=== PATIENT | female | born 2000 | race Two or more races ===

== ENCOUNTER 2018-03-28 23:12 | Emergency (ER) | payer OTHER ==
[2018-03-28 23:22] VITALS: BP 123/102
--- NOTE | 2018-03-28 23:29 | EDPHY ---
H & P Stated Complaint: wisdom tooth pain after extraction Source: Patient Exam Limitations: No limitations - Personal History LMP (Females 10-55): 8-14 Days Ago Current Tetanus Diphtheria and Acellular Pertussis (TDAP): Yes - Medical/Surgical History Hx Asthma: No Hx Chronic Respiratory Disease: No Hx Diabetes: No Hx Cardiac Disease: No Hx Renal Disease: No Hx Cirrhosis: No Hx Alcoholism: No Hx HIV/AIDS: No Hx Splenectomy or Spleen Trauma: No - Social History Smoking Status: Never smoked Time Seen by Provider: 03/28/18 23:23 HPI/ROS: HPI: This is a 17-year-old female who presents with Chief Complaint: Tooth pain Location: Tooth Quality: Pain Duration: 4-5 days Signs and Symptoms: no fever, no nausea, no vomiting, no diarrhea, no urinary symptoms, no chest pain, no shortness of breath, no wheezing, no cough, no sore throat, no neck stiffness, no joint pain, no swollen glands, no ear pain, no rash, no drooling Timing: Acute Severity: [id number] Context: Patient is a student at [employer], originally from [place], had all of her 4 wisdom teeth removed in [place] approximately 5 days ago. Patient presents with complaints of tooth pain that is not relieved by ibuprofen. She reports that it hurts to open her mouth and she has not been able to eat much food for the last several days. She has been trying to drink liquids. Patient reports that her left jaw is hurting. Modifying Factors: Ibuprofen with no relief Comment: ROS: A comprehensive 10 system review of systems is otherwise negative aside from elements mentioned in the history of present illness. MEDICAL/SURGICAL/SOCIAL HISTORY: Medical history: Generally healthy. Does not take any regular medications. Surgical history: Denies Social history: Nonsmoker. Family history noncontributory. CONSTITUTIONAL: Nontoxic-appearing, polite and cooperative teenage white female , awake and alert, no obvious distress HEENT: Atraumatic and normocephalic, PERRL, EOMI. no globe entrapment, no raccoon eyes. no Castillo signs.Tympanic membranes clear. No tympanic membrane rupture. Nares patent; no septal hematoma. Oropharynx clear, no exudate and moist pink mucosa. No malocclusion. no dental trauma. No signs of dry socket. No gingival erythema or fluctuance. Airway patent. No lymphadenopathy. NECK: supple, no lymphadenopathy, No meningismus. Cardiovascular: Normal S1/S2, tachycardia, regular rhythm, without murmur rub or gallop. PULMONARY/CHEST: Symmetrical and nontender. no crepitus. Clear to auscultation bilaterally. Good air movement. No accessory muscle usage. ABDOMEN: Soft, nondistended, nontender. EXTREMITIES: 2/2 pulses, no deformities, no clubbing, no cyanosis or edema. NEUROLOGICAL: no focal neuro deficits. GCS 15. Speech clear. SKIN: Warm and dry, no erythema. no rash. Good capillary refill. (Nikkie Kirkland) Constitutional: Initial Vital Signs Temperature (C) 36.8 C 03/28/18 23:20 Heart Rate 104 H 03/28/18 23:20 Respiratory Rate 20 03/28/18 23:20 Blood Pressure 123/102 H 03/28/18 23:20 O2 Sat (%) 98 03/28/18 23:20 O2 Delivery Mode Room Air Allergies/Adverse Reactions: No Known Allergies Allergy (Unverified 03/28/18 23:19) Home Medications: Medication Instructions Recorded Amoxicillin Trihydrate [Amoxil] 500 mg PO TID 7 Days cap 03/28/18 Chateal-28 Tablet 03/28/18 Medical Decision Making ED Course/Re-evaluation: Vital signs reviewed and show mild tachycardia. Patient has no signs of facial cellulitis/dental abscess/malocclusion/dry socket Given prepack and prescription for amoxicillin and Percocet This patient was seen under the supervision of my secondary supervising physician. I evaluated care for this patient independently. (Nikkie Kirkland) PHYSICIAN DOCUMENTATION: The patient was evaluated and managed by the Physician [employer]. My co- signature indicates that I have reviewed this chart and I agree with the findings and plan of care as documented. I am the secondary supervising physician. (Lexie Malone) Differential Diagnosis: Differential diagnosis includes but is not limited toothache, cellulitis, abscess, dry socket. (Nikkie Kirkland) - Data Points Medications Given: Discontinued Medications Amoxicillin (Amoxil Chewable 250 Mg Prepack#4) 1 btl TAKEHOME EDNOW ONE PRN Reason: Protocol Stop: 03/28/18 23:31 Last Admin: 03/28/18 23:50 Dose: 1 btl Oxycodone/Acetaminophen (Percocet 5/325mg Prepack#4) 1 btl TAKEZEHRAE EDNOW ONE Stop: 03/28/18 23:31 Last Admin: 03/28/18 23:50 Dose: 1 btl Departure - Departure Disposition: Home, Routine, Self-Care Clinical Impression: Status post wisdom tooth extraction, Odontalgia Condition: Good Instructions: Oxycodone/Acetaminophen (By mouth), Amoxicillin (By mouth), Toothache (ED) Additional Instructions: Eat a soft diet. Consume a minimum of 8-10 glasses of water or electrolyte fluid replacement drinks that include Gatorade, Powerade, Pedialyte. Take Tylenol 650 mg every 4 hr and/or ibuprofen 600 mg every 8 hr as needed for pain. Take Percocet every 8 hr as needed for severe/breakthrough pain. Do not take Tylenol and Percocet at the same time. Taking antibiotic as directed until complete. Do not miss any doses. Referrals: [facility] [Outside] - 3-4 days, if not improved Prescriptions: Amoxicillin Trihydrate [Amoxil] 500 mg PO TID 7 Days cap
[2018-03-28] MEDS ORDERED: OXYCODONE/APAP 5/325MG PREPACK#4 BTL TAKEHOME ONE (23:30)
[2018-03-28] MEDS ORDERED: AMOXICILLIN 250 MG PREPACK#4 BTL TAKEHOME ONE (23:30)
== END 2018-03-28 23:55 | disposition home or self-care (01) ==
DX: K08.89 Other specified disorders of teeth and supporting structures (principal)

== ENCOUNTER 2018-04-01 02:31 | Emergency (ER) | payer OTHER ==
[2018-04-01 02:46] LABS: PLATELET COUNT 412 10^3/uL (150-400)
--- NOTE | 2018-04-01 03:38 | EDPHY ---
H & P Stated Complaint: AMS Source: Patient, EMS Exam Limitations: Intoxication - Medical/Surgical History Hx Asthma: No Hx Chronic Respiratory Disease: No Hx Diabetes: No Hx Cardiac Disease: No Hx Renal Disease: No Hx Cirrhosis: No Hx Alcoholism: No Hx HIV/AIDS: No Hx Splenectomy or Spleen Trauma: No - Social History Smoking Status: Never smoked Time Seen by Provider: 04/01/18 02:39 HPI/ROS: HPI The patient presents with overdose of alcohol, brought in by ambulance after her roommate called 911 because of altered mental status. The patient had a prescription of Percocet with her and paramedics gave her several doses of Narcan with no improvement in her mental status. The patient says she has had about 10 drinks of alcohol throughout the day today. This caused her to feel suicidal and she used a knife to cut her left neck very superficially. She says she has been feeling this way for the last 4 months and was drinking alcohol to help her to cope. She did not think the alcohol would causes suicide. 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 We saw her in the ER a few days ago after pain after her wisdom teeth were removed in [place]. She has been seen at the [facility] for symptoms of depression. She does not want to take medication for this. She cut her left wrist when she was 13 years old but does not have any other self-harm behaviors. REVIEW OF SYSTEMS 10 systems were reviewed and negative with the exception of the elements mentioned in the history of present illness. PMHx: Recent wisdom tooth removal Soc Hx: College student, from [place] originally PHYSICAL General Appearance: Tearful, clearly intoxicated Eyes: Pupils equal and round no pallor or injection ENT, Mouth: Mucous membranes moist Respiratory: There are no retractions, lungs are clear to auscultation Cardiovascular: Regular rate and rhythm Gastrointestinal: Abdomen is soft and non-tender, no masses, bowel sounds normal Neurological: A&O, moves all extremities Skin: Warm and dry, no rashes Musculoskeletal: Neck is supple, superficial abrasions to left neck Extremities: symmetrical, full range of motion Psychiatric: Patient is oriented X 3, there is no agitation (Riguzzi,Lexie) Constitutional: Initial Vital Signs Temperature (C) 36.3 C 04/01/18 02:31 Heart Rate 126 H 04/01/18 02:31 Respiratory Rate 16 04/01/18 02:31 Blood Pressure 131/110 H 04/01/18 02:31 O2 Sat (%) 98 04/01/18 02:31 O2 Delivery Mode Room Air Allergies/Adverse Reactions: No Known Allergies Allergy (Unverified 03/28/18 23:19) Home Medications: Medication Instructions Recorded Amoxicillin Trihydrate [Amoxil] 500 mg PO TID 7 Days cap 03/28/18 Chateal-28 Tablet 03/28/18 Acetamin-Codein 300-30 mg/12.5 04/01/18 Ibuprofen 04/01/18 Medical Decision Making ED Course/Re-evaluation: 7:00 a.m.-I assumed care of this patient at shift change. She presents with suicidal ideation on an M1 hold. She was intoxicated with alcohol last evening and presented with self cutting behavior. Mental health evaluation pending. This patient was seen by mental health and felt appropriate for outpatient treatment of depression. She denies suicidal ideation. I agree with this assessment. Safe and stable for discharge home with outpatient mental health follow-up. (Ashlyn Juarez) Differential Diagnosis: 17-year-old female, college student, presents with suicidal ideation, cutting her neck very superficially while intoxicated with alcohol. She is brought in by ambulance. Police have placed her on an M1 hold. Here, she is common cooperative. Plan for basic labs, observation, mental health evaluation. His differential diagnosis includes alcohol intoxication, polysubstance abuse, suicidal ideation related to underlying depression. The patient was monitored in the emergency department. Blood alcohol level was elevated. The case will be signed out at 7:[address] Juarez. The patient is awaiting mental health evaluation. (Lexie Malone) - Data Points Laboratory Results: Laboratory Results 04/01/18 02:30 04/01/18 02:30 Departure - Departure Disposition: Home, Routine, Self-Care Clinical Impression: Alcoholic intoxication Condition: Good Instructions: Alcohol Intoxication (ED), Suicide Prevention (ED) Referrals: [facility] [Clinic] - As per Instructions
[2018-04-01 13:16] VITALS: BP 110/78
--- NOTE | 2018-04-01 13:51 | ASMTTCLDSP ---
TLC Discharge Disposition Disposition: Answers: Discharge If Answers: Yes DISCHARGED: Patient/family given suicide hotline info & SAMHSA brochure? Disposition Notes: Notes: Py was discharged in care of roommate and friend. Pt will call and make an appt with her therapist at [facility] today. Discharge Concerns/Recommendations: Notes: In consultation with [facility] ED physician Ashlyn Juarez MD, concurred that pt does not appear to meet 27-65 criteria requiring psychiatric hospitalization as pt does not appear to be an imminent risk of harm to self/others/gravely disabled due to a mental illness condition. Date and time M1 hold 04/01/2018 12:38 PM vacated (time format is hh:mm): Date Signed: 04/01/2018 01:50 PM Electronically Signed By:Radha Garcia
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
--- NOTE | 2018-04-03 11:09 | ASMTCMCOM ---
CM Note CM Note Notes: This CM attempted to contact patient on her listed cell phone number to inform her of medications in the pharmacy that belong to her. Unfortunately, the phone number listed does not go to and was not answered after 3 attempts. If patient presents to hospital for her medications she can contact pharmacy directly CM available for further needs Date Signed: 04/03/2018 11:08 AM Electronically Signed By:Catina Braun RN
== END 2018-04-01 13:15 | disposition home or self-care (01) ==
LOC: EDUNIT#
PROC: GZ11ZZZ Psychological Tests, Personality and Behavioral (ICD-10-PCS; principal; 2018-04-01)
DX: F10.920 Alcohol use, unspecified with intoxication, uncomplicated (principal); R45.851 Suicidal ideations
CPT/HCPCS: 80305; G0480